=== PATIENT | female | born 1975 | race Caucasian/White ===

== ENCOUNTER 2016-03-05 11:37 | Observation (INO) ==
[2016-03-05] MEDS ORDERED: CIPROFLOXACIN INJ 400 MG in PREMIX 1 EACH IV STA (12:42)
[2016-03-05] MEDS ORDERED: LACTATED RINGERS 1,000 ML IV ONE ×2 (12:42→15:15)
[2016-03-05] MEDS ORDERED: metroNIDAZOLE INJ 500 MG in PREMIX 1 EACH IV STA (12:42)
[2016-03-05 12:49] LABS: Basophils % 0.4 % (0.0-0.8); Eosinophils # 0.1 10*3/uL (0.0-0.87); Eosinophils % 0.8 % (0.00-10.9); Hematocrit 42.1 VOL% (35.7-47.0); Hemoglobin 14.4 GM/DL (12.0-16.0); Immature Granulocytes % 0.1 %; Immature Granulocytes Absolute 0.01 #; Lymphocytes # 2.8 10*3/uL (1.4-4.0); Lymphocytes % 37.7 % (21.3-54.2); Mean Corpuscular HGB Conc 34.2 GM/DL (32-36); Mean Corpuscular Hemoglobin 31 PG (27-34); Mean Corpuscular Volume 91.1 FL (87-102); Mean Platelet Volume 9.8 FL (9.6-12.0); Monocytes # 0.7 10*3/uL (0.11-0.8); Monocytes % 8.7 % (1.7-12.7); Neutrophils # 3.9 10*3/uL (1.4-7.4); Neutrophils % 52.3 % (38.7-73.9); Platelet Count 176 10*3/uL (130-400); Red Blood Count 4.62 10*6/uL (3.8-5.5); White Blood Count 7.5 10*3/uL (4.5-13.71)
--- NOTE | 2016-03-05 12:52 | Emergency Department Note ---
Bhargav Adrian Brittany, am scribing for, and in the presence of, Michael Krueger MD 12 :44. Evans Adrian Hans, MD, personally performed the services described in this documentation, ascribed by Ivett Durant in my presence, and it is both accurate and complete 252 . Arrival - Arrival Chief Complaint: Abdominal / Flank Pain Stated Complaint: dr sent back to er/possible appendicitis ED Nursing Triage Note: RLQ pain "for a while". Pt had out pt CT ABD scan this morning and was then called to come back to ED. Mode of Arrival: Ambulatory Limitations: No Limitations Source: Patient, RN Notes Reviewed Time Seen by Provider: 03/05/16 12:33 - History of Present Illness HPI Narrative: Patient is a 40 y/o white female presenting to the ED with c/o abdominal pain, N /V, and chills with an onset of "a while." Patient had a CT abdomen scan this morning and was called and told to present to the ED. Patient states that over the past few weeks pain has increasingly gotten worse. Patient notes that pain is worsened with eating, so she has had a decrease in PO intake lately, but reports having breakfast after CT scan stating that she became very nauseous afterwards. She describes vomit as "foamy and clear" and says that it's not food because she has not been really eating anything. Patient states that she has had some flatus today and had a small bowel movement yesterday, but denies having any hematuria, hematochezia, melena, urinary problems, or fever with this. Patient reports having a history of hysterectomy related to fibroids and a umbilical hernia repair. She notes taking Paxil and Xanax daily. Patient notes having a lab workup performed on 03/01/16. Patient has no other complaint/ pain. Allergies/Adverse Reactions: Allergies Allergy/AdvReac Type Severity Reaction Status Date / Time Penicillins Allergy Dizziness Verified 03/05/16 12:05 Home Medications: Home Medications Medication Instructions Recorded Confirmed Type ALPRAZolam [Xanax] 0.5 mg PO BID PRN 03/05/16 03/05/16 History PARoxetine [Paxil] 20 mg PO DAILY 03/05/16 03/05/16 History Review of System - Review of System 12 point system: reviewed and no additional remarkable complaints except as stated - Review of System Constitutional: Present: chills Gastrointestinal: Present: abdominal pain, nausea, vomiting. Absent: hematemesis, melena, hematochezia Genitourinary female: Absent: dysuria, frequency, hematuria, urgency Medical,Surgical,& Family Hx - Medical History Psychological: History of: Anxiety Disorders - Surgical History Reproductive Surgeries: Surgical HX of;: Hysterectomy - Social History Smoking Status: Never smoker Frequency of Alcohol Use: None Type of Drug Use: None Exam Vital Signs: Vital Signs Temperature 97.9 F 03/05/16 11:57 Pulse Rate 77 03/05/16 11:57 Respiratory Rate 16 03/05/16 11:57 Blood Pressure 133/85 03/05/16 11:57 O2 Sat by Pulse Oximetry 99 03/05/16 11:57 - General General appearance: alert, in no apparent distress - Head Head exam: Present: atraumatic, normocephalic - Eye Eye exam: Present: PERRL, EOMI - ENT ENT exam: Present: mucous membranes moist, TM's normal bilaterally - Neck Neck exam: Present: full ROM, trachea midline. Absent: tenderness - Chest Chest inspection: Present: symmetric chest wall rise. Absent: tenderness - Respiratory Respiratory exam: Present: normal lung sounds bilaterally. Absent: rales, rhonchi, wheezes - Cardiovascular Cardiovascular exam: Present: regular rate, normal rhythm, normal heart sounds. Absent: murmur, rubs, gallop - Abdominal Exam Abdominal exam: Present: soft, tenderness (RLQ), hypoactive bowel sounds. Absent: distention, normal bowel sounds, other (peritonitis) - Extremities Exam Extremities exam: Present: full ROM. Absent: tenderness - Back Exam Back exam: Present: full ROM. Absent: tenderness - Neurological Exam Neurological exam: Present: alert, oriented X3, CN II-XII intact, normal gait, reflexes normal. Absent: motor sensory deficit - Psychiatric Psychiatric exam: Present: normal affect, normal mood - Skin Skin exam: Present: warm, dry, intact, normal color Course Course Narrative: This patient was evaluated in the ER and her CT scan was reviewed. Her exam, history, and CT scan is consistent with appendicitis. I have discussed her care with Dr. Sosa who will see her in the ER. We did order some lab work as well as IV fluids and antibiotics. She has already had a hysterectomy. Results - Labs CBC & BMP: 03/05/16 12:26 Disposition Clinical Impression: Abdominal pain Case discussed with: patient Disposition: Still a Patient Condition: Stable Instructions: Appendicitis (GEN) Time of Disposition: 12:52
[2016-03-05 13:16] LABS: Magnesium 2.3 MG/DL (1.8-2.4); Osmolality,Calculated 280.1 MOS/KG (273-304)
[2016-03-05] MEDS ORDERED: LIDOCAINE MPF 2% /EPI 20 ML VIAL ONE (13:24)
[2016-03-05] MEDS ORDERED: CIPROFLOXACIN 400 MG/200 ML PREMIX IV ONE (13:24)
[2016-03-05] MEDS ORDERED: BUPIVACAINE MPF 0.25% /EPI 30 ML VIAL ONE (13:24)
[2016-03-05] MEDS ORDERED: GABAPENTIN 100 MG CAPSULE ONE (13:27)
[2016-03-05] MEDS ORDERED: ACETAMINOPHEN 500 MG TABLET ONE (13:27)
[2016-03-05] MEDS ORDERED: LIDOCAINE 1%/EPI INJ 20 ML VIAL ONE (13:27)
[2016-03-05] MEDS ORDERED: PROPOFOL 200 MG/20 ML VIAL IV ONE (13:43)
[2016-03-05] MEDS ORDERED: ROCURONIUM 100 MG/10 ML VIAL IV ONE (13:43)
[2016-03-05] MEDS ORDERED: NEOSTIGMINE 10 MG/10 ML VIAL ONE (13:43)
[2016-03-05] MEDS ORDERED: ONDANSETRON 4 MG/2 ML VIAL ONE (13:43)
[2016-03-05] MEDS ORDERED: DEXAMETHASONE 10 MG/1 ML VIAL ONE (13:43)
[2016-03-05] MEDS ORDERED: GLYCOPYRROLATE 0.4 MG/2 ML VIAL ONE (13:43)
[2016-03-05] MEDS ORDERED: PHENYLEPHRINE 1 MG/10 ML SYRINGE IV ONE (13:43)
[2016-03-05] MEDS ORDERED: KETOROLAC 30 MG/1 ML VIAL ONE (13:43)
[2016-03-05] MEDS ORDERED: SUCCINYLCHOLINE 200 MG/10 ML VIAL ONE (13:43)
[2016-03-05] MEDS ORDERED: LIDOCAINE 100 MG/5 ML SYRINGE ONE (13:43)
[2016-03-05] MEDS ORDERED: TISSUE ADHESIVE 1 EACH APPLICATOR TOP ONE (14:56)
--- NOTE | 2016-03-05 15:11 | Anesthesia ---
Anesthesia Post OP - Post Ansesthetic Evaluation Patient seen in post op: Yes Resp: within normal limits CV: within normal limits Mental: within normal limits Temp: within normal limits [id number]: within normal limits Nausea and Vomiting: within normal limits Pain: within normal limits
[2016-03-05] MEDS ORDERED: MIDAZOLAM 2 MG/2 ML VIAL ONE (15:15)
[2016-03-05] MEDS ORDERED: SEVOFLURANE 1 UNIT/15 MINUTE INH ONE (15:15)
[2016-03-05] MEDS ORDERED: fentaNYL 100 MCG/2 ML VIAL ONE (15:15)
--- NOTE | 2016-03-05 16:04 | Anesthesia ---
Anesthesia Post OP - Post Ansesthetic Evaluation Patient seen in post op: Yes Resp: within normal limits CV: within normal limits Mental: within normal limits Temp: within normal limits [id number]: within normal limits Nausea and Vomiting: within normal limits Pain: within normal limits
[2016-03-05] MEDS ORDERED: LEVOFLOXACIN INJ 500 MG in PREMIX 1 EACH IV ONE (17:11)
[2016-03-05] MEDS ORDERED: ONDANSETRON 4 MG/2 ML VIAL IV PRN (17:11)
[2016-03-05] MEDS: MORPHINE 2 MG/1 ML SYRINGE IV PRN ×2 (17:18→21:20)
[2016-03-06 12:05] VITALS: BP 111/68
--- NOTE | 2016-03-06 12:32 | Discharge Summary ---
Hospital Course - Hospital Course Hospital Course: She feels well. Her postoperative pain is gone though she has expected postoperative soreness at her port sites. She is tolerating a regular diet. She is afebrile with stable vital signs and feels much better since her appendectomy which went without complication yesterday. This was more difficult than usual because of her previous operations especially at her umbilicus. She appears to be fine for discharge this morning and we will discharge her home with plans to follow-up in my office in one week. - Time spent with patient Time with patient DS: Less than 30 minutes Specialty Discharge - Follow Up or Referrals Discharge Plan - Discharge Data Disposition: Disch To Home/Self Care Condition at Discharge: Stable Discharge Diet: advance to your usual diet Activity: resume usual activities as tolerated - Discharge Medications No Action ALPRAZolam [Xanax] 0.5 mg PO DAILY PARoxetine [Paxil] 20 mg PO DAILY - Follow Up or Referral Follow Up: Deepak Sosa III., MD [Physician] - 1 Week - Forms/Instructions Instructions: Appendicitis (GEN), Laparoscopic Appendectomy (DC) Additional Discharge Instructions: [place] prescription Exam - Constitutional Vitals: Period Temp Pulse Resp BP Sys/Saldivar Pulse Ox Last 24 Hr 97.2 F-99.1 F 65-99 16-18 93-112/46-91 96-100 Discharge Results Procedures and tests throughout hospitalization: Pending Orders 03/06/16 12:00 Hematocrit Routine 03/06/16 20:00 Hematocrit Routine 03/07/16 04:00 Hematocrit Routine 03/07/16 12:00 Hematocrit Routine 03/07/16 20:00 Hematocrit Routine Labs on day of discharge: Labs from last 24 hours 03/06/16 03/05/16 04:18 19:46 Hct 38.0 39.6 DS: Provider Date of admission: 03/05/16 16:27 Primary care physician: . No PCP Attending physician on admission: Deepak Sosa III., Discharging clinician: Deepak Sosa III.,
--- NOTE | 2016-04-16 16:20 | Operative Note ---
DATE: 03/05/2016 PREOPERATIVE DIAGNOSIS: ACUTE APPENDICITIS. POSTOPERATIVE DIAGNOSIS: ACUTE APPENDICITIS. OPERATIVE PROCEDURE: Laparoscopic appendectomy. SURGEON: Rg Sosa III ANESTHESIA: General with local ESTIMATED BLOOD LOSS: Minimal COMPLICATIONS: None DRAINS: None SPECIMEN: Appendix to pathology. FINDINGS AND TECHNIQUE: Please note that this is an old dictation as [facility]. The patient was brought to the operating room and after successful induction of general anesthesia, the patient's abdomen was prepped and draped in the usual sterile fashion. Local anesthesia was inf iltrated at the umbilicus where an open technique was used on the peritoneal cavity and a Jimenez can nula inserted. The pneumoperitoneum was established and the camera was inserted and 5 mm ports were placed in the lower midline and right upper quadrant under camera vision. The appendix was grasped and retracted upwards and an Endo-GI stapling device fired across the mesoappendix and across the b ase of the appendix and the appendix placed in an Endo catch bag and removed through the umbilical p ort site. Good hemostasis was obtained and the ports removed and no bleeding noted from the port si dionicio. The gas was evacuated from the abdomen and the fascial defect at the umbilicus closed with run alexa #0 Monocryl suture and the skin incisions closed with 4-0 Vicryl subcuticular suture and tissue adhesive. She appeared to tolerate the procedure well.
== END 2016-03-06 13:50 | disposition home or self-care (01) ==
LOC: N.5E 11:37 → N.ED 11:37 → N.5E 13:40
PROVIDERS: ADMIT Surgery; ATTEND Surgery

== ENCOUNTER 2018-09-21 08:09 | Observation (INO) ==
[2018-09-21] MEDS ORDERED: ASPIRIN 325 MG TABLET PO STA (08:44)
[2018-09-21 08:58] LABS: Basophils % 0.5 % (0.0-0.8); Eosinophils # 0.1 10*3/uL (0.0-0.87); Eosinophils % 0.7 % (0.00-10.9); Hematocrit 43.1 VOL% (35.7-47.0); Hemoglobin 14.3 GM/DL (12.0-16.0); Immature Granulocytes % 0.4 %; Immature Granulocytes Absolute 0.03 #; Lymphocytes % 26.8 % (21.3-54.2); Mean Corpuscular HGB Conc 33.2 GM/DL (32-36); Mean Corpuscular Volume 94.9 FL (87-102); Mean Platelet Volume 9.9 FL (9.6-12.0); Monocytes % 9.7 % (1.7-12.7); Neutrophils % 61.9 % (38.7-73.9); Platelet Count 157 T/CUMM (130-400); Red Blood Count 4.54 MC/CUMM (3.8-5.5); Red Cell Distribution Width 12.4 % (9.3-17.3); White Blood Count 7.5 T/CUMM (4-12)
[2018-09-21 09:18] LABS: INR 0.9; PT Patient Result 10.2 SECS; Partial Thromboplastin Time 26.3 SECS (0-40)
[2018-09-21 09:35] LABS: Bilirubin,Total 0.6 MG/DL (0.2-1.0); Calcium 8.7 MG/DL (8.5-10.1)
[2018-09-21 10:10] LABS: Amorphous Crystals,Urine Moderate /HPF (Few); Apearance,Urine CLOUDY (Clear); Bilirubin,Urine Negative (Negative); Blood, Urine Negative (Negative); Glucose,Urine (UA) Negative (Negative); Ketones,Urine Negative (Negative); Mucus,Urine Moderate /LPF (Occasional); Nitrite,Urine Negative (Negative); Protein,Urine Negative; Squamous Epithelial Cell,Urine Occasional /HPF (0-10); Urine Color Yellow (Yellow); Urine Specific Gravity 1.016 (1.001-1.035); Urine Urobilinogen < 2.0 EU/DL (0.2-1.0)
[2018-09-21 11:25] LABS: Barbiturates Screen,Urine Negative (Negative); Benzodiazepines Screen,Urine Negative (Negative); Cannabinoid Screen,Urine Negative (Negative); Opiate Screen,Urine Negative (Negative); Phencyclidine Screen,Urine Negative (Negative)
[2018-09-21] MEDS ORDERED: NAPROXEN 250 MG TABLET PO PRN (13:06)
[2018-09-21] MEDS ORDERED: CLORAZEPATE 3.75 MG TABLET PO PRN (13:06)
[2018-09-21] MEDS ORDERED: ONDANSETRON 4 MG/2 ML VIAL IV PRN (13:11)
[2018-09-21] MEDS ORDERED: ACETAMINOPHEN 325 MG TABLET PO PRN (13:11)
[2018-09-21] MEDS ORDERED: ENOXAPARIN 40 MG/0.4 ML SYRINGE SUBCUT SCH (13:30)
[2018-09-21] MEDS: DOCUSATE SODIUM 100 MG CAPSULE PO SCH (20:52)
[2018-09-21] MEDS ORDERED: TOPIRAMATE 100 MG TABLET PO SCH (21:00)
[2018-09-22 05:19] LABS: Free T4 (Free Thyroxine) 0.66 NG/DL (0.76-1.46); Thyroid Stimulating Hormone 3.57 uIU/ml (0.358-3.74)
[2018-09-22] MEDS: DOCUSATE SODIUM 100 MG CAPSULE PO SCH (08:43)
[2018-09-22] MEDS ORDERED: PANTOPRAZOLE 40 MG TABLET PO SCH ×2 (09:00→21:00)
[2018-09-22] MEDS ORDERED: FLUoxetine 20 MG CAPSULE PO SCH (09:00)
[2018-09-22] MEDS ORDERED: ACETAMINOPHEN 325 MG TABLET PO SCH (10:24)
[2018-09-22] MEDS ORDERED: GABAPENTIN 100 MG CAPSULE PO SCH (10:25)
[2018-09-22 10:49] LABS: Risk Ratio 2.63; VLDL CHOLESTEROL 19.4 MG/DL
[2018-09-22 11:32] VITALS: BP 105/64
== END 2018-09-22 12:38 | disposition home or self-care (01) ==
LOC: N.EDINP 08:09 → N.ED 08:09 → N.2E 14:35
PROVIDERS: ADMIT Family Medicine; ATTEND Family Medicine

== ENCOUNTER 2019-09-29 12:37 | Observation (INO) ==
[2019-09-29] MEDS ORDERED: ONDANSETRON 4 MG/2 ML VIAL IV STA ×2 (15:44→17:40)
[2019-09-29] MEDS ORDERED: HYDROmorphone 2 MG/1 ML VIAL IV STA ×2 (15:44→17:39)
[2019-09-29 15:58] LABS: Basophils % 0.3 % (0.0-0.8); Hematocrit 43.5 VOL% (35.7-47.0); Hemoglobin 14.9 GM/DL (12.0-16.0); Immature Granulocytes % 0.3 %; Immature Granulocytes Absolute 0.04 #; Lymphocytes # 1.1 10*3/uL (1.4-4.0); Lymphocytes % 9.7 % (21.3-54.2); Mean Corpuscular HGB Conc 34.3 GM/DL (32-36); Mean Corpuscular Volume 94.8 FL (87-102); Mean Platelet Volume 9.3 FL (9.6-12.0); Neutrophils % 83.7 % (38.7-73.9); Platelet Count 198 T/CUMM (130-400); Red Blood Count 4.59 MC/CUMM (3.8-5.5); Red Cell Distribution Width 11.9 % (9.3-17.3); White Blood Count 11.8 T/CUMM (4-12)
[2019-09-29 16:18] LABS: Albumin 3.7 G/DL (3.4-5.0); Bilirubin,Total 1.7 MG/DL (0.2-1.0); Osmolality,Calculated 280.4 MOS/KG (273-304); Total Protein 7.5 G/DL (6.4-8.3)
[2019-09-29 16:34] LABS: Amorphous Crystals,Urine Occasional /HPF (Few); Apearance,Urine CLOUDY (Clear); Bacteria,Urine Occasional /HPF (Few); Bilirubin,Urine Negative (Negative); Blood, Urine Small mg/dL (Negative); Glucose,Urine (UA) Negative (Negative); Ketones,Urine 20 mg/dL (Negative); Mucus,Urine Many /LPF (Occasional); Nitrite,Urine Negative (Negative); Protein,Urine Negative; RBC,Urine 6 /HPF (0-4); Squamous Epithelial Cell,Urine Many /HPF (0-10); Urine Color Yellow (Yellow); Urine Specific Gravity 1.021 (1.001-1.035); Urine Urobilinogen < 2.0 EU/DL (0.2-1.0)
[2019-09-29] MEDS ORDERED: PROMETHAZINE 25 MG/1 ML VIAL IM PRN (17:42)
[2019-09-29] MEDS ORDERED: DEXTROSE 50% 25 GM/50 ML VIAL IV PRN (17:42)
[2019-09-29] MEDS ORDERED: traZODone 50 MG TABLET PO PRN (17:42)
[2019-09-29] MEDS ORDERED: LACTULOSE 20 GM/30 ML UDCUP PO PRN (17:42)
[2019-09-29] MEDS ORDERED: DOCUSATE SODIUM 100 MG CAPSULE PO PRN (17:42)
[2019-09-29] MEDS ORDERED: GLUCAGON 1 MG VIAL IM PRN (17:42)
[2019-09-29] MEDS ORDERED: NICOTINE 21 MG/24 HR PATCH TRANSDERM PRN (17:42)
[2019-09-29] MEDS ORDERED: BISACODYL 5 MG TABLET PO PRN (17:42)
[2019-09-29] MEDS ORDERED: MORPHINE 4 MG/1 ML VIAL IV PRN (17:42)
[2019-09-29] MEDS ORDERED: CALCIUM CARBONATE CHEW 500 MG TABLET PO PRN (17:42)
[2019-09-29] MEDS ORDERED: SIMETHICONE CHEW 125 MG TABLET PO PRN (17:42)
[2019-09-29] MEDS ORDERED: TAMSULOSIN 0.4 MG CAPSULE PO ONE (17:42)
[2019-09-29] MEDS ORDERED: ONDANSETRON 4 MG/2 ML VIAL IV PRN (17:42)
[2019-09-29] MEDS ORDERED: hydrALAZINE 20 MG/1 ML VIAL IV PRN (17:42)
[2019-09-29] MEDS ORDERED: ZALEPLON 5 MG CAPSULE PO PRN (17:42)
[2019-09-29] MEDS ORDERED: diphenhydrAMINE CAP 25 MG CAPSULE PO PRN (17:42)
[2019-09-29] MEDS ORDERED: guaiFENesin/DM ER 600-30 MG TABLET PO PRN (17:42)
[2019-09-29] MEDS ORDERED: ALUMINUM/MAGNES/SIMETH MAX STR 30 ML UDCUP PO PRN (17:42)
[2019-09-29] MEDS ORDERED: CLORAZEPATE 3.75 MG TABLET PO PRN (17:55)
[2019-09-29] MEDS ORDERED: LEVOFLOXACIN INJ 500 MG in PREMIX 1 EACH IV SCH (18:00)
[2019-09-29 18:38] LABS: Free T4 (Free Thyroxine) 0.82 NG/DL (0.76-1.46)
[2019-09-29] MEDS ORDERED: HYDROmorphone 2 MG/1 ML VIAL IV PRN (19:53)
[2019-09-29] MEDS ORDERED: HYOSCYAMINE 0.125 MG TABLET SL PRN (20:17)
[2019-09-29] MEDS ORDERED: SODIUM CHLORIDE 0.9% 1,000 ML IV ONE (20:30)
[2019-09-29] MEDS ORDERED: TOPIRAMATE 100 MG TABLET PO SCH (21:00)
[2019-09-29] MEDS ORDERED: TAMSULOSIN 0.4 MG CAPSULE PO SCH (21:00)
[2019-09-29] MEDS ORDERED: MAGNESIUM OXIDE 400 MG TABLET PO SCH (21:00)
[2019-09-29] MEDS: PANTOPRAZOLE 40 MG TABLET PO SCH (22:00)
[2019-09-29] MEDS: CALCIUM CARBONATE VITAMIN D3 PO SCH (22:06)
[2019-09-30 05:33] LABS: Basophils % 0.4 % (0.0-0.8); Eosinophils % 0.2 % (0.00-10.9); Hematocrit 40.4 VOL% (35.7-47.0); Hemoglobin 13.7 GM/DL (12.0-16.0); Immature Granulocytes % 0.6 %; Immature Granulocytes Absolute 0.05 #; Lymphocytes % 12.5 % (21.3-54.2); Mean Corpuscular HGB Conc 33.9 GM/DL (32-36); Mean Corpuscular Volume 96.9 FL (87-102); Mean Platelet Volume 9.3 FL (9.6-12.0); Monocytes % 9.3 % (1.7-12.7); Platelet Count 138 T/CUMM (130-400); Red Blood Count 4.17 MC/CUMM (3.8-5.5); Red Cell Distribution Width 11.9 % (9.3-17.3); White Blood Count 8.2 T/CUMM (4-12)
[2019-09-30 06:19] LABS: Microcytosis Slight
[2019-09-30 06:20] LABS: Platelet Estimate Adequate
[2019-09-30 06:43] LABS: Bilirubin,Total 1.1 MG/DL (0.2-1.0); Calcium 8.6 MG/DL (8.5-10.1); Osmolality,Calculated 277.5 MOS/KG (273-304); Risk Ratio 3.1; Thyroid Stimulating Hormone 0.888 uIU/ml (0.358-3.74); Total Protein 6.3 G/DL (6.4-8.3)
[2019-09-30] MEDS ORDERED: CHOLECALCIFEROL 5,000 UNIT TABLET PO SCH (09:00)
[2019-09-30] MEDS ORDERED: FLUoxetine 20 MG CAPSULE PO SCH (09:00)
[2019-09-30] MEDS: PANTOPRAZOLE 40 MG TABLET PO SCH (09:46)
[2019-09-30] MEDS: CALCIUM CARBONATE VITAMIN D3 PO SCH (09:50)
[2019-09-30] MEDS: SODIUM CHLORIDE 0.9% 1,000 ML IV SCH ×3 (12:25→12:27)
[2019-09-30 16:24] VITALS: BP 109/68
[2019-09-30] MEDS ORDERED: TAMSULOSIN 0.4 MG CAPSULE PO SCH (21:00)
== END 2019-09-30 18:15 | disposition home or self-care (01) ==
LOC: N.EDINP 12:37 → N.ED 12:37 → SUATTDRO 17:42 → N.3E 19:50
PROVIDERS: ADMIT Hospitalist; ATTEND Family Medicine